=== PATIENT | male | born 1945 | race Caucasian/White ===

== ENCOUNTER 2017-10-14 05:28 | Day surgery (SDC) | payer OTHER ==
[~2017-10-14] VITALS: Ht 177.8 cm; Wt 83.9 kg
--- NOTE | ~2017-10-14 | O ---
[facility] [place] [address] OPERATIVE REPORT Name: FELIBERTO OLIVO Natalee Room #: DEP [facility].#: [id number] Admission: 10/14/17 Attend Phys: Ascencion Jha MD Discharge: 10/14/17 Date of : 45 Report #: [id number] THIS REPORT FOR: //name// CC: PAUL physician/PCP Ascencion Jha DATE OF SERVICE: 10/14/2017 PREOPERATIVE DIAGNOSIS: Left inguinal hernia. POSTOPERATIVE DIAGNOSIS: Left direct inguinal hernia. PROCEDURE PERFORMED: Laparoscopic properitoneal repair of left inguinal hernia with large 3DMax light weight mesh. SURGEON: Ascencion Jha MD ANESTHESIA: General anesthesia. COMPLICATIONS: None. ESTIMATED BLOOD LOSS: 5 mL PROCEDURE NOTE: With the patient under general anesthesia, a Blackwell catheter was placed, IV antibiotic was administered. Abdomen was prepped and draped in sterile fashion. Timeout was performed. A 0.25% Marcaine was used to anesthetize the skin adjacent to the umbilicus on the left side. Transverse incision was made. Fascia was identified. Fascia was then incised in a transverse manner. The anterior rectus sheath was incised in transverse manner. The incision is about 2 cm. The rectus muscle was spread along the length of its fiber. The posterior sheath was then palpated and the space between the muscle and the posterior sheath was opened bluntly. With a fingertip, an Origin balloon trocar was then placed through the space. CO2 was administered. A 5 mm camera through the scope was then placed through the Origin balloon trocar. A 5 mm trocar was placed about 2 inches below the umbilicus under visualization into the properitoneal space. Cautery and blunt dissection was then used to open the rest of properitoneal space. A second 5 mm trocar was then placed about an inch and a half below the region of the first 5 mm trocar close to the midline. Dissection was then carried out. The patient had a large direct defect identified. There was properitoneal fat that pushed into this. The fat was brought back in the properitoneal space and the defect was then fully visualized. Internal ring was then also dissected free. The cord structures identified. Peritoneal reflection on the cord was seen. No indirect hernia. The peritoneum was then further brought down away from the cord. The properitoneal space was completely dissected out this way. A large 3DMax light weight mesh was then folded, placed through the Origin balloon trocar, opened [address] [address] OPERATIVE REPORT Name: FELIBERTO OLIVO Room #: DEP [facility] Jodie.Sandra#: [id number] Admission: 10/14/17 Attend Phys: Ascencion Jha MD Discharge: 10/14/17 Date of : 45 Report #: [id number] the properitoneal space. This mesh was then seated covering the direct defect, also the internal ring. The mesh was tacked laterally to the abdominal wall with SorbaFix. The inferomedially was tacked to Howard's ligament just above the pubic bone superomedially to the rectus muscle. Again, the mesh was nicely placed covering the defect well. CO2 was then evacuated from the properitoneal space. Trocars were then removed. The anterior fascia, anterior rectus sheath was then closed with a [id number] 0 Vicryl. Skin was irrigated. Skin was closed with 5-0 PDS. Steri-Strip, Band-Aids applied. The patient tolerated the procedure well. <ELECTRONICALLY SIGNED> By: Ascencion Jha MD 11/15/17 1426 [id number] Ascencion Jha MD /nt
--- NOTE | ~2017-10-14 | EKG ---
[address] [address] ELECTROCARDIOGRAM REPORT Name: FELIBERTO OLIVO Room #: [address] [place] [address].#: [id number] Admission: 10/14/17 Attend Phys: Ascencion Jha MD Discharge: Date of : 45 Report #: [id number] THIS REPORT FOR: //name// [facility] Test Date: 2017-10-14 Test Time: 07:33:38 Pat Name: FELIBERTO OLIVO Department: Room: [facility] Gender: M Marketing Analytics Analyst: GISEL : 1945 Requested By: Ascencion Jha Order Number: [id number] MD: Mina Pires Measurements Intervals [place] Rate: 61 P: 33 PA: 149 QRS: -34 QRSD: 80 T: 38 QT: 424 QTc: 427 Interpretive Statements Sinus rhythm Left axis deviation No previous ECG available for comparison Electronically Signed On 10-14-2017 7:49:29 EVENT SPECIALIST by Mina Pires [email or web address] <ELECTRONICALLY SIGNED> By: Mina Pires MD, [facility] 10/14/17 0749 0733 0733 Mina Pires MD, FACC /EPI
[~2017-10-14 05:28] MED LIST: ASPIR 8181 MG PO; FLOMAX0.4 MG PO; LEVOXYL137 MCG PO; LIPITOR 20 MG T20 M1 PO; NORTRIPTYLINE H25 M3 PO; OXYBUTYNIN 5 MG5 M2 PO; PROSCAR 5MG TABL5 MG PO
[2017-10-14 07:49] LABS: HEMOGLOBIN 14.9 gm/dL (14.0-18.0)
[2017-10-14 08:15] VITALS: BP 159/67
[2017-10-14 11:02] VITALS: BP 159/67
== END 2017-10-14 18:20 | disposition home or self-care (01) ==
LOC: TBA 05:28 → OR 05:28 → TBA 05:29 → OR 16:06
PROVIDERS: Surgery
DX: K40.90 Unilateral inguinal hernia, without obstruction or gangrene, not specified as recurrent (principal); Z87.891 Personal history of nicotine dependence; E78.00 Pure hypercholesterolemia, unspecified; K21.9 Gastro-esophageal reflux disease without esophagitis; N40.0 Benign prostatic hyperplasia without lower urinary tract symptoms; E03.9 Hypothyroidism, unspecified; Z98.890 Other specified postprocedural states
CPT/HCPCS: 50010; 50101; 50411; 50507; 50555; 50848; 53065; 53307; 56525; 56526; 62110; 62900